=== PATIENT | female | born 1995 | race Caucasian/White ===

== ENCOUNTER 2017-04-28 14:55 | Emergency (ER) | payer OTHER ==
[2017-04-28] MEDS ORDERED: Ondansetron ODT TAB* 4 MG SL ONE (16:56)
--- NOTE | 2017-04-28 18:50 | RAD ---
HISTORY: Fall, head injury COMPARISONS: None TECHNIQUE: Multiple contiguous axial CT scans were obtained of the head without intravenous contrast. FINDINGS: HEMORRHAGE/INFARCT: There is no hemorrhage or acute infarct. MASSES/SHIFT: There is no mass or shift. EXTRA-AXIAL SPACES: There are no extra-axial fluid collections. SULCI AND VENTRICLES: The sulci and ventricles are normal in size and position for the patient's stated age. CEREBRUM: There are no focal parenchymal abnormalities. BRAINSTEM: There are no focal parenchymal abnormalities. CEREBELLUM: There are no focal parenchymal abnormalities. VESSELS: The vessels are grossly normal. PARANASAL SINUSES: The paranasal sinuses are clear. ORBITS: The orbits are unremarkable. BONES AND SOFT TISSUE: No bone or soft tissue abnormalities are noted. OTHER: None IMPRESSION: NO ACUTE INTRACRANIAL PATHOLOGY.
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
[2017-04-28 19:27] LABS: Hematocrit 43 % (35-47); Hemoglobin 14.5 g/dl (12.0-16.0); Mean Corpuscular HGB Conc 34 g/dl (31-36); Mean Corpuscular Hemoglobin 29 pg (27-31); Mean Corpuscular Volume 86 fL (80-97); Mean Platelet Volume 9 um3 (7.4-10.4); Red Blood Count 4.99 10^6/ul (4.0-5.4); Red Cell Distribution Width 13 % (10.5-15)
[2017-04-28 19:40] LABS: ALT 10 U/L (7-52); AST 17 U/L (13-39); Albumin 4.8 g/dL (3.2-5.2); Alkaline Phosphatase 34 U/L (34-104); Anion Gap 9 mmol/L (2-11); BUN/Creatinine Ratio 11.1 (8-20); Blood Urea Nitrogen 8 mg/dL (6-24); CO2 Carbon Dioxide 27 mmol/L (22-32); Calcium 9.4 mg/dL (8.6-10.3); Chloride 101 mmol/L (101-111); EGFR African American 132.8 (>60); EGFR Non-African American 103.3 (>60); Globulin 3.3 g/dL (2-4); Glucose 83 mg/dL (70-100); Potassium 3.4 mmol/L (3.5-5.0); Sodium 137 mmol/L (133-145); Total Protein 8.1 g/dL (6.4-8.9)
[2017-04-28 19:48] LABS: Acetaminophen < 15 mcg/mL; Alcohol < 10 mg/dL (<10); Salicylate < 2.50 mg/dL (<30)
[2017-04-28 20:04] LABS: TSH (Thyroid Stimulating Horm) 3.12 mcIU/mL (0.34-5.60)
[2017-04-28 20:46] LABS: Benzodiazepine Urine Screen None Detected (None Detect)
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
[2017-04-28 22:13] VITALS: BP 128/76
== END 2017-04-28 22:08 | disposition home or self-care (01) ==
LOC: ED 14:55
DX: S06.0X0A Concussion without loss of consciousness, initial encounter (principal); T14.8XXA Other injury of unspecified body region, initial encounter; T42.3X1A Poisoning by barbiturates, accidental (unintentional), initial encounter; Y92.9 Unspecified place or not applicable; X58.XXXA Exposure to other specified factors, initial encounter; Z88.0 Allergy status to penicillin
CPT/HCPCS: 36415; 70450; 70486; 80053; 80307; 80320; 80329; 84443; 84702; 85025; 99282; A9270-GY; G0480

== ENCOUNTER → 2017-06-21 09:39 | Emergency (ER) | payer OTHER ==
[~2017-06-21 09:39] MED LIST: Acetaminophen TAB* 325 MG PO ONE; Albuterol/Ipratropium NEB.SOL* Albuterol 2.5 MG/Ipratropium 0.5 MG 3 ML INH ONE; Iohexol 350* (CONTRAST) 500 ML MDV IV ONE
--- NOTE | 2017-06-21 10:32 | ED ---
Shortness of Breath - HPI Summary HPI Summary: 22 female presents to ED accompanied by father with complaints of some wheezing , SOB and chest pain that worsens with movement, swallowing, cough and inspiration. Patient states symptoms began last night and the pain worsened today. Denies recent long distance travel, prolonged bed rest and cigarette use. Patient does take OCP. Has not taken any medication for her pain/SOB. Has not been coughing frequently, but does have a nonproductive cough. No nasal congestion, sore throat, calf pain, dizziness, or ear pain. Does have PMHx of asthma. No other medical problems, no medications. Patient denies fever/chills, nausea, vomiting and radiation of pain. Denies palpitations. No other complaints. History or pneumonia in the past. no trauma or injury. No issues with eating. - History of Current Complaint Chief Complaint: EDShortnessOfBreath Time Seen by Provider: 06/21/17 09:49 Hx Obtained From: Patient, Family/Hand Chain Maker - father Onset/Duration: Sudden Onset, Lasting Days - 1 day, began last night, Still Present, Worse Since Timing: Constant Current Severity: Mild Aggrevating Factors: Movement - swallowing, inspiration, coughing Alleviating Factors: Nothing - rest not moving or coughin Associated Signs & Symptoms: Cough (Nonproductive) - infrequent, Chest Pain w/ Cough - and movement/inspiration - Risk Factors Pulmonary Embolism: Oral Contraceptives Cardiac: Negative Pseudomonas: Negative Tuberculosis: Negative - Allergy/Home Medications Allergies/Adverse Reactions: Allergies Allergy/AdvReac Type Severity Reaction Status Date / Time Ibuprofen [From Motrin] Allergy Severe Anaphylatic Verified 06/21/17 09:53 Shock Penicillins [PCN] Allergy Severe Rash Verified 06/21/17 09:53 peanuts Allergy Anaphylatic Uncoded 06/21/17 09:45 Shock Home Medications: Home Medications Control 1 tab PO DAILY 06/21/17 [History Confirmed 06/21/17] PMH/Surg Hx/FS Hx/Imm Hx Endocrine/Hematology History: Denies: Hx Diabetes, Hx Thyroid Disease, Hx Anemia Cardiovascular History: Denies: Hx Hypertension Respiratory History: Reports: Hx Asthma - Surgical History Surgery Procedure, Year, and Place: n/a - Immunization History Immunizations Up to Date: Yes Infectious Disease History: No Infectious Disease History: Denies: Traveled Outside the [place] in Last 30 Days - Family History Known Family History: Positive: Cardiac Disease - mom - cardiac arrhythmia, Other - mom-cancer - Social History Alcohol Use: Weekly Hx Substance Use: No Substance Use Type: Reports: Other Substance Use Comment - Amount & Last Used: Adderall at times Hx Tobacco Use: No Smoking Status (MU): Never Smoked Tobacco Review of Systems Constitutional: Negative Eyes: Negative ENT: Negative Positive: Chest Pain - chest wall Positive: Shortness Of Breath, Cough Gastrointestinal: Negative Positive: Myalgia Neurological: Negative All Other Systems Reviewed And Are Negative: Yes Physical Exam Triage Information Reviewed: Yes Vital Signs On Initial Exam: Initial Vitals Temp Pulse Resp BP Pulse Ox 97.8 F 74 16 127/81 100 06/21/17 09:42 06/21/17 09:42 06/21/17 09:42 06/21/17 09:42 06/21/17 09:42 afebrile and non hypoxic Vital Signs Reviewed: Yes Appearance: Positive: Well-Appearing, No Pain Distress, Well-Nourished Skin: Positive: Warm, Skin Color Reflects Adequate Perfusion, Dry. Negative: Cold, Numb, Cyanosis @, Jaundiced, Pale, Erythema @ Head/Face: Positive: Normal Head/Face Inspection Eyes: Positive: EOMI, JAYE, Conjunctiva Clear ENT: Positive: Normal ENT inspection, Hearing grossly normal, Pharynx normal, TMs normal, Uvula midline, Other - airway patent. Negative: Nasal congestion, Nasal drainage, Tonsillar swelling, Tonsillar exudate Neck: Positive: Supple, Nontender, No Lymphadenopathy Respiratory/Lung Sounds: Positive: Clear to Auscultation, Breath Sounds Present , Wheezes - minimal upper lung smith with expiration, improved completely after duoneb. Negative: Rales, Rhonchi Cardiovascular: Positive: Normal, RRR, Pulses are Symmetrical in both Upper and Lower Extremities, Other - non reproducible, no rub appreciated. Negative: Murmur, Rub Abdomen Description: Positive: Nontender, Soft Bowel Sounds: Positive: Present Musculoskeletal: Positive: Normal, Strength/ROM Intact Neurological: Positive: Normal, Sensory/Motor Intact, Alert, Oriented to Person Place, Time Psychiatric: Positive: Normal Diagnostics - Vital Signs Vital Signs Temp Pulse Resp BP Pulse Ox 06/21/17 10:07 18 06/21/17 09:42 97.8 F 74 16 127/81 100 - Laboratory Result Diagrams: 06/21/17 11:01 06/21/17 11:01 Lab Statement: Any lab studies that have been ordered have been reviewed, and results considered in the medical decision making process. - CT CTA chest CT Interpretation: Positive (See Comments) - 1. Mildly limited CT pulmonary angiogram without compelling evidence for pulmonary embolism. 2. Pneumomediastinum as described. CT Interpretation Completed By: Radiologist - EKG EKG Cardiac Rate: NL EKG Rhythm: Sinus Rhythm ST Segment: Normal Ectopy: None EKG Interpretation: NSR, no STEMI, no abnormalities EKG Comparison: No Significant Change Re-Evaluation - Re-Evaluation First Eval Re-Evaluation Time: 12:00 Change: Improved - had relief after duonbe, still having some chest tightness. updated on labs and plan. updated on xray results. will try ibuprofen for discomfort, awaiting d dimer result. Second Eval Re-Evaluation Time: 17:29 Change: Unchanged - feeling ok, no changes. updated on current imaging results, consult with surgeon and lab results. patient and father understand best care for patient is to be transferred to [facility] with higher level of care and thoracic surgery. Course/Dx - Course Course Of Treatment: chest xray, duoneb and labs obtained. EKG obtained and NSR. normal vitals, no tachycardia, hypoxia or fever. slight elevation of WBC not of concern at this time, rest of lab work unremarkable. negative troponin. had relief from duoneb. given tylenol for pain, had some relief. no concerning risk factors other than OCP for PE. obtained D dimer due to OCP use and due to patient symptoms/complaints. it was elevated at 361. Chest xray negative other than showing some possible obstructive lung disease. No active infection or other abnormalities. CTA obtained and showed a significantly sized pneumomediastinum. Consulted with Dr Velazco at 3:30pm, who concsulted patient and stated she suggested transfer due to size to a facility with thoracic surgery. Patient and father understood and agreed. All questions answered. Patient was accepted at [facility] by Dr Kee at 17:15. Will be transferred by [facility], ALS. - Diagnoses Differential Diagnosis/HQI/PQRI: Positive: Asthma, Bronchitis, Chest Wall Pain, Pulmonary Embolism, Other - pneumomediastinum Provider Diagnoses: Pneumomediastinum - Physician Notifications Discussed Care of Patient With: Dr Ace, Dr Velazco Time Discussed With Above Provider: 14:30 Discharge - Discharge Plan Condition: Stable Disposition: TRANS HIGHER LVL OF CARE FAC Referrals: [facility] - Musa LEE [Primary Care Provider] -
[2017-06-21 11:10] LABS: Hematocrit 44 % (35-47); Hemoglobin 14.5 g/dl (12.0-16.0); Mean Corpuscular HGB Conc 33 g/dl (31-36); Mean Corpuscular Hemoglobin 29 pg (27-31); Mean Corpuscular Volume 86 fL (80-97); Mean Platelet Volume 9 um3 (7.4-10.4); Red Blood Count 5.05 10^6/ul (4.0-5.4); Red Cell Distribution Width 13 % (10.5-15); White Blood Count 11.8 10^3/ul (3.5-10.8)
[2017-06-21 11:28] LABS: ALT 7 U/L (7-52); AST 13 U/L (13-39); Albumin 4.3 g/dL (3.2-5.2); Alkaline Phosphatase 44 U/L (34-104); Anion Gap 7 mmol/L (2-11); Blood Urea Nitrogen 7 mg/dL (6-24); CO2 Carbon Dioxide 27 mmol/L (22-32); Calcium 9.5 mg/dL (8.6-10.3); Chloride 102 mmol/L (101-111); EGFR African American 137.2 (>60); EGFR Non-African American 106.7 (>60); Globulin 3.1 g/dL (2-4); Glucose 86 mg/dL (70-100); Potassium 3.6 mmol/L (3.5-5.0); Sodium 136 mmol/L (133-145); Total Protein 7.4 g/dL (6.4-8.9)
--- NOTE | 2017-06-21 12:13 | RAD ---
INDICATION: Shortness of breath, wheezing. Upper back and posterior neck pain. COMPARISON: No relevant prior exams available on the [facility] [place]. TECHNIQUE: Dual energy PA and routine lateral views of the chest were obtained. REPORT: Elevated lung volumes. No pulmonary infiltrate, focal pulmonary lesion, pleural effusion, pneumothorax. The heart, pulmonary vasculature, and mediastinal contours are unremarkable. IMPRESSION: Elevated lung volumes may reflect obstructive lung disease or simply exuberant inspiratory effort for examination. No evidence for pneumonia.
--- NOTE | 2017-06-21 14:14 | RAD ---
INDICATION: Chest pain and shortness of breath. On oral contraceptives. Elevated d-dimer. COMPARISON: June 21, 2017 chest radiograph. TECHNIQUE: Multidetector CT images were obtained from the lung apices to the upper abdomen with 60 mL Omnipaque 350 contrast administered IV for the first data acquisition and 60 mL Omnipaque 350 for the second data acquisition. Pulmonary angiogram protocol. Multiplanar reformation including with maximum intensity projection. REPORT: No pulmonary infiltrate or suspicious focal pulmonary lesion. Foci of rarefaction of interstitial markings at the LEFT upper lobe likely reflecting air trapping. Negative for pleural effusion. Pneumomediastinum without significant pneumothorax. Foci of abnormal gas visualized from the neck of the cephalad portion of the [id number] through the level of the esophagogastric junction inferiorly. Negative for mediastinal fluid collection. Negative for cardiomegaly or pericardial effusion. Unremarkable normal diameter thoracic aorta. Suboptimal contrast opacification of the pulmonary arteries and respiratory motion artifact limits image quality on both the first and the second data acquisitions. No compelling filling defects are identified at the main, segmental, and where visible the subsegmental pulmonary arteries to indicate pulmonary embolism. Unremarkable Limited images through the upper abdomen. No free air evident beneath the diaphragm. Negative for suspicious osseous lesions. IMPRESSION: 1. Mildly limited CT pulmonary angiogram without compelling evidence for pulmonary embolism. 2. Pneumomediastinum as described. Results discussed with Dr. Basilio 06/21/2017 2:09 PM EST
[2017-06-21 17:16] VITALS: BP 117/85
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
== END | disposition short-term general hospital (02) ==
LOC: ED 09:39
DX: J98.2 Interstitial emphysema (principal); R05 Cough; R07.9 Chest pain, unspecified; R06.02 Shortness of breath
CPT/HCPCS: 36415; 71020; 71275; 80053; 83605; 84484; 84702; 85025; 85379; 93005; 94640; 99283; A9270-GY; Q9967